=== PATIENT | female | born 1990 | race Hispanic/Latino ===

== ENCOUNTER 2021-05-05 15:33 | Emergency (ER) | payer MEDICAID ==
--- NOTE | 2021-05-05 17:35 | Emergency Department Report ---
ED HPI - General Chief complaint: OB/Uterine Contractions Stated complaint: LEAKING FLUID (16WKS PREG) Time Seen by Provider: 05/05/21 16:36 Source: patient Mode of arrival: Ambulatory Limitations: No Limitations - History of Present Illness Initial comments: Patient presents because she has been leaking fluid. She thinks that she is leaking amniotic fluid. Several days ago she started having a thin clear vaginal discharge. Patient went to another hospital. Ultrasound was done and she was told that she had plenty of fluid around the baby. She was not told what was causing the fluid. No pelvic exam was completed. Patient came here because she did not know what was going on. She is currently 16 weeks. She was told after her last several months ago that she should not get for 2 years because she is going to be high risk due to some sort of cervical problem. She states that with her last , her cervix "came out." - Related Data Allergies Allergy/AdvReac Type Severity Reaction Status Date / Time No Known Allergies Allergy Verified 05/05/21 16:24 ED Review of Systems ROS: Stated complaint: LEAKING FLUID (16WKS PREG) Other details as noted in HPI Comment: All other systems reviewed and negative Constitutional: denies: fever Eyes: denies: eye pain ENT: denies: throat pain Respiratory: denies: cough Cardiovascular: denies: chest pain Endocrine: denies: unexplained weight loss Gastrointestinal: denies: abdominal pain Genitourinary: as per HPI Musculoskeletal: denies: back pain Skin: denies: rash Neurological: denies: headache Hematological/Lymphatic: denies: easy bruising ED Past Medical Hx - Past Medical History Additional medical history: Recent complications - Family History Family history: no significant ED Physical Exam - General Limitations: No Limitations, Other (Pulse ox noted and normal) General appearance: alert, in no apparent distress - Head Head exam: Present: atraumatic, normocephalic - Eye Eye exam: Present: normal appearance, EOMI - ENT ENT exam: Present: normal orophraynx, normal external ear exam - Neck Neck exam: Present: normal inspection. Absent: meningismus - Respiratory Respiratory exam: Present: normal lung sounds bilaterally. Absent: respiratory distress - Cardiovascular Cardiovascular Exam: Present: regular rate, normal rhythm - GI/Abdominal GI/Abdominal exam: Present: soft. Absent: distended, tenderness - External exam: Present: normal external exam Speculum exam: Present: cervical discharge. Absent: vaginal bleeding (Thick) - Extremities Exam Extremities exam: Present: normal capillary refill - Back Exam Back exam: Absent: CVA tenderness (R), CVA tenderness (L) - Neurological Exam Neurological exam: Present: alert, oriented X3, CN II-XII intact, normal gait. Absent: motor sensory deficit - Psychiatric Psychiatric exam: Present: normal affect, normal mood - Skin Skin exam: Present: warm, dry ED Course Vital Signs 05/05/21 16:21 Pulse Rate 81 Respiratory 18 Rate Blood Pressure 127/58 [Left] O2 Sat by Pulse 100 Oximetry - Reevaluation(s) Reevaluation #1: 05/05/21 17:34 Ultrasound and labs have been ordered. Pelvic was requested. Reevaluation #2: 05/05/21 20:41 Ultrasound have been noted. Pelvic exam was complete. Test results are pending . Reevaluation #3: 05/05/21 20:53 Labs are noted and the patient was discharged ED Medical Decision Making - Radiology Data Radiology results: report reviewed - Medical Decision Making Patient presented with leakage of fluid that was concerning for amniotic fluid. Based on the ultrasound, she does seem to have less fluid than previous. There was no obvious pelvic infection. As the patient is 16 weeks, she is previable. There would be no indication for emergent intervention. She was placed on bedrest. We discussed abstinence. We discussed outpatient follow-up. Lab test was negative for rupture of membranes. Critical Care Time: No Critical care attestation.: If time is entered above; I have spent that time in minutes in the direct care of this critically ill patient, excluding procedure time. ED Disposition Clinical Impression: Vaginal discharge Disposition: HOME / SELF CARE / HOMELESS Is pt being admited?: No Condition: Stable Additional Instructions: Limit lifting. Drink plenty water. You should rest as much as possible. Do not insert anything into the vagina. 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 Referrals: PRIMARY CARE, [Referring] - 3-5 Days
--- NOTE | 2021-05-05 19:17 | Ultrasound Report ---
ULTRASOUND OBSTETRIC INDICATION: LEAKING FLUID. Clinical Gestational Age (GA): 15.2 weeks TECHNIQUE: Transabdominal. COMPARISON: None available. FINDINGS: There is a single intrauterine . Biparietal Diameter = 2.92 cm = 15 weeks, 2 day(s). Head Circumference = 12.03 cm = 16 weeks, 0 day(s). Abdominal Circumference = 9.66 cm = 15 weeks, 5 day(s). Femur Length = 1.86 cm = 15 weeks, 4 day(s). Average Ultrasound Age (AUA) = 15 weeks, 5 day(s). Heart Rate: 152 beats per minute. Estimated Weight in grams (if calculated): Not calculated Estimated Weight Growth Percentile (if calculated): Not calculated Position: cephalic. Cervix: closed. Length in cm (if measured): 2.7 Placenta: Right lateral and free of the os. Amniotic Fluid Volume: decreased Amniotic Fluid Index (NELSON) in cm (if calculated): 3.8 Maternal Adnexa: No significant abnormality. IMPRESSION: 1. Single, living intrauterine with estimated sonographic age of 15 weeks, 5 day(s). 2. Decreased amniotic fluid index of 3.8 cm. Signer Name: Valerio Mcgarry MD Signed: 05/05/2021 7:12 PM Workstation Name: [id number]
[2021-05-05 21:15] VITALS: BP 122/56
== END 2021-05-05 21:15 | disposition home or self-care (01) ==
LOC: ED 15:33
DX: O26.892 Other specified pregnancy related conditions, second trimester (principal); N89.8 Other specified noninflammatory disorders of vagina; Z3A.15 15 weeks gestation of pregnancy
CPT/HCPCS: 36415; 76805; 84112; 87210; 99284

== ENCOUNTER 2021-08-06 08:53 | Outpatient (CLI) | payer MEDICAID ==
[2021-08-06] MEDS ORDERED: LACTATED RINGERS 1,000 ML ONE (09:31)
[2021-08-06] MEDS ORDERED: LACTATED RINGERS 500 ML IV ONE (09:45)
[2021-08-06 09:50] VITALS: BP 96/57
[2021-08-06 10:59] LABS: Bilirubin,Urine NEG (Negative); Blood,Urine NEG (Negative); Color,Urine Yellow (Yellow); Mucus,Urine FEW /HPF; Protein,Urine <15 mg/dL mg/dL (Negative); Urobilinogen,Urine < 2.0 mg/dL (<2.0)
[2021-08-06] MEDS ORDERED: ACETAMINOPHEN 500 MG TAB PO SCH (12:00)
--- NOTE | 2021-08-06 13:30 | Ultrasound Report ---
ULTRASOUND OBSTETRIC LIMITED INDICATION / CLINICAL INFORMATION: position/placental scan. Clinical Gestational Age (GA) in weeks, days: 29, 1 TECHNIQUE: Transabdominal. COMPARISON: None available. FINDINGS: HEART RATE (beats per minute): 129 AMNIOTIC FLUID INDEX (cm) = 12.9 (normal = 7-24 cm) PRESENTATION: Cephalic. ADDITIONAL FINDINGS: There is a right lateral grade 0 placenta IMPRESSION: 1. No significant abnormality. Signer Name: Royer Davis DO Signed: 08/06/2021 1:25 PM Workstation Name: [id number]
== END 2021-08-06 13:31 | disposition home or self-care (01) ==
LOC: TRG 08:53 → APU 08:54 → TRG 13:31
PROVIDERS: ATTEND Obstetrics & Gynecology
DX: O26.893 Other specified pregnancy related conditions, third trimester (principal); R10.30 Lower abdominal pain, unspecified; M54.50 Low back pain, unspecified; O99.333 Smoking (tobacco) complicating pregnancy, third trimester; F17.200 Nicotine dependence, unspecified, uncomplicated; Z3A.29 29 weeks gestation of pregnancy
CPT/HCPCS: 36415; 59025; 76815; 81001; 96360; J7120

== ENCOUNTER 2021-08-07 13:07 | Outpatient (CLI) | payer MEDICAID ==
[2021-08-07] MEDS ORDERED: LACTATED RINGERS 1,000 ML IV ONE (13:28)
[2021-08-07 13:49] VITALS: BP 100/60
[2021-08-07 14:10] LABS: Bilirubin,Urine NEG (Negative); Blood,Urine NEG (Negative); Color,Urine Yellow (Yellow); Mucus,Urine FEW /HPF; Protein,Urine <15 mg/dL mg/dL (Negative); RBC,Urine < 1.0 /HPF (0.0-6.0); Urobilinogen,Urine < 2.0 mg/dL (<2.0); WBC,Urine < 1.0 /HPF (0.0-6.0)
[2021-08-07 16:02] LABS: Amphetamine Screen,Urine Negative; Benzodiazepines Screen,Urine Negative; Cocaine Screen,Urine Negative; Methadone Screen,Urine Negative; Opiate Screen,Urine Negative
[2021-08-07 16:13] LABS: Cannabinoid Screen,Urine Positive
== END 2021-08-07 16:37 | disposition home or self-care (01) ==
LOC: TRG 13:07 → APU 13:08 → TRG 16:37
PROVIDERS: ATTEND Obstetrics & Gynecology
DX: O42.90 Premature rupture of membranes, unspecified as to length of time between rupture and onset of labor, unspecified weeks of gestation (principal); Z3A.29 29 weeks gestation of pregnancy
CPT/HCPCS: 36415; 59025; 80307; 81001; 82731; 84112

== ENCOUNTER 2021-08-12 12:52 | Outpatient (CLI) | payer MEDICAID ==
[2021-08-12] MEDS ORDERED: LACTATED RINGERS 1,000 ML IV ONE (14:15)
[2021-08-12 14:21] LABS: Bilirubin,Urine NEG (Negative); Blood,Urine NEG (Negative); Color,Urine Yellow (Yellow); Protein,Urine <15 mg/dL mg/dL (Negative); Urobilinogen,Urine < 2.0 mg/dL (<2.0); WBC,Urine < 1.0 /HPF (0.0-6.0)
[2021-08-12 16:30] VITALS: BP 105/55
--- NOTE | 2021-08-12 16:45 | Ultrasound Report ---
ULTRASOUND OBSTETRIC LIMITED INDICATION / CLINICAL INFORMATION: vaginal bleeding. Clinical Gestational Age (GA) in weeks, days: 30 weeks 0 days. TECHNIQUE: Transabdominal and Transvaginal. COMPARISON: 08/06/2021 FINDINGS: Single living intrauterine . Placental location is fundal. Grade 0 placenta. Cervical length is 4.85 cm. No evidence of placental production. A placental padilla noted. HEART RATE (beats per minute): 137 AMNIOTIC FLUID INDEX (cm) = not calculated (normal = 7-24 cm) PRESENTATION: Breech. ADDITIONAL FINDINGS: None. IMPRESSION: 1. Single living intrauterine . 2. No signs of abruption. 3. Additional findings as above. Signer Name: Vinny Bustillos MD Signed: 08/12/2021 4:40 PM Workstation Name: [id number]
== END 2021-08-12 16:38 | disposition home or self-care (01) ==
LOC: TRG 12:52 → APU 12:53 → TRG 16:38
PROVIDERS: ATTEND Obstetrics & Gynecology
DX: O26.853 Spotting complicating pregnancy, third trimester (principal); Z3A.30 30 weeks gestation of pregnancy
CPT/HCPCS: 59025; 76815; 81001

== ENCOUNTER 2021-08-31 13:43 | Outpatient (CLI) | payer MEDICAID ==
[2021-08-31 14:31] VITALS: BP 109/56
[2021-08-31] MEDS ORDERED: LACTATED RINGERS 500 ML IV ONE (16:00)
--- NOTE | 2021-08-31 18:19 | Ultrasound Report ---
US OB LIMITED INDICATION / CLINICAL INFORMATION: Spotting. COMPARISON: 08/12/21. FINDINGS: There is a single intrauterine in a cephalic presentation. The heart rate is 147 bpm area Amniotic fluid volume is normal with an NELSON of 9.8 cm. The placenta is located in the posterior fundus on the right, is grade 1 and is free of the os. There is no evidence of abruption. The cervix measures 3.6 cm in length and the internal os is closed. Signer Name: Mode Schroeder MD Signed: 08/31/2021 6:15 PM Workstation Name: [id number]
== END 2021-08-31 16:36 | disposition home or self-care (01) ==
LOC: TRG 13:43 → APU 14:16 → TRG 16:36
PROVIDERS: ATTEND Obstetrics & Gynecology
DX: Z34.93 Encounter for supervision of normal pregnancy, unspecified, third trimester (principal); Z3A.32 32 weeks gestation of pregnancy
CPT/HCPCS: 76815